=== PATIENT | female | born 1965 | race Caucasian/White ===

== ENCOUNTER 2016-11-27 08:06 | Emergency (ER) | payer SELFPAY ==
[2016-11-27 08:23] VITALS: BP 147/86
[2016-11-27] MEDS ORDERED: TYLENOL ONE (08:23)
[2016-11-27] MEDS ORDERED: TYLENOL PO ONE (08:24)
--- NOTE | 2016-11-27 08:44 | Emergency Department Report ---
- General Chief Complaint: Upper Respiratory Infection Stated Complaint: FLU SYMPTOMS Time Seen by Provider: 11/27/16 08:28 Source: patient Mode of arrival: Ambulatory Limitations: Language Barrier - History of Present Illness Initial Comments: Patient complains of headache, runny nose, nonproductive cough and fever since last night. Denies chest pain or discomfort, shortness of breath, sore throat or painful swallowing, spitting or coughing up blood. Also complains of back pain and frequent urination 2 weeks ago and again last night. Denies dysuria, urgency, vaginal discharge or discomfort. Patient has a history of back pain. Reports taking Motrin last night for fever and back pain. - Related Data Previous Rx's Medication Instructions Recorded Last Taken Type Acetaminophen [Tylenol] 1,000 mg PO Q6HR #21 tablet 11/27/16 Unknown Rx Amoxicillin/K Clav Tab [Augmentin 1 tab PO Q12HR #20 tab 11/27/16 Unknown Rx 875 mg] Fluconazole [Diflucan TAB] 150 mg PO ONCE #2 tablet 11/27/16 Unknown Rx Fluticasone [Flonase] 1 spray NS QDAY #1 bottle 11/27/16 Unknown Rx Sulfamethoxazole/Trimethoprim 1 each PO BID #14 tablet 11/27/16 Unknown Rx [Bactrim DS TAB] Allergies Allergy/AdvReac Type Severity Reaction Status Date / Time No Known Allergies Allergy Verified 11/27/16 08:47 ED Review of Systems ROS: Stated complaint: FLU SYMPTOMS Other details as noted in HPI Comment: All other systems reviewed and negative ED Past Medical Hx - Medications Home Medications: Home Medications Medication Instructions Recorded Confirmed Last Taken Type Acetaminophen [Tylenol] 1,000 mg PO Q6HR #21 tablet 11/27/16 Unknown Rx Amoxicillin/K Clav Tab [Augmentin 1 tab PO Q12HR #20 tab 11/27/16 Unknown Rx 875 mg] Fluconazole [Diflucan TAB] 150 mg PO ONCE #2 tablet 11/27/16 Unknown Rx Fluticasone [Flonase] 1 spray NS QDAY #1 bottle 11/27/16 Unknown Rx Sulfamethoxazole/Trimethoprim 1 each PO BID #14 tablet 11/27/16 Unknown Rx [Bactrim DS TAB] ED Physical Exam - General Limitations: Language Barrier General appearance: alert, in no apparent distress - Head Head exam: Present: atraumatic, normocephalic, normal inspection, other (b/l frontal sinus tenderness.) - Eye Eye exam: Present: normal appearance, PERRL, EOMI. Absent: scleral icterus, conjunctival injection, periorbital swelling, periorbital tenderness - ENT ENT exam: Present: normal orophraynx, mucous membranes moist, TM's normal bilaterally, normal external ear exam - Neck Neck exam: Present: normal inspection, full ROM. Absent: tenderness, meningismus, lymphadenopathy - Respiratory Respiratory exam: Present: normal lung sounds bilaterally. Absent: respiratory distress, wheezes, rales, rhonchi, stridor, chest wall tenderness, accessory muscle use, decreased breath sounds, prolonged expiratory - Cardiovascular Cardiovascular Exam: Present: regular rate, normal rhythm - GI/Abdominal GI/Abdominal exam: Present: soft, normal bowel sounds. Absent: distended, tenderness (no suprapubic tenderness), guarding, rebound, rigid - Extremities Exam Extremities exam: Present: normal inspection, full ROM, normal capillary refill. Absent: tenderness, pedal edema, joint swelling - Back Exam Back exam: Present: normal inspection, full ROM, vertebral tenderness (LS- spine ). Absent: tenderness, CVA tenderness (R), CVA tenderness (L) - Neurological Exam Neurological exam: Present: alert, oriented X3, normal gait, reflexes normal. Absent: motor sensory deficit - Psychiatric Psychiatric exam: Present: normal affect, normal mood - Skin Skin exam: Present: warm, dry, intact, normal color. Absent: rash, cyanosis, diaphoretic, erythema, petechiae, pallor, abrasion, ecchymosis ED Course Vital Signs 11/27/16 11/27/16 08:14 09:24 Temperature 100.2 F H 99.2 F Pulse Rate 103 H Respiratory 18 Rate Blood Pressure 147/86 O2 Sat by Pulse 100 Oximetry ED Medical Decision Making - Medical Decision Making 51 YOF with acute frontal sinusitis, and UTI. UA reveals proteinuria, Large leukocyte esterase, high white count and 1+ bacterial. She will be treated appropriately for acute sinusitis and UTI (see prescriptions). Antipyretic also provided. Patient education, follow-up/referral, return instructions provided. She verbalized understanding and is agreeable to plan. Critical care attestation.: If time is entered above; I have spent that time in minutes in the direct care of this critically ill patient, excluding procedure time. ED Disposition Clinical Impression: Sinusitis Qualifiers: Sinusitis location: frontal Chronicity: acute Recurrence: not specified as recurrent Qualified Code(s): J01.10 - Acute frontal sinusitis, unspecified UTI (urinary tract infection) Qualifiers: Urinary tract infection type: site unspecified Hematuria presence: without hematuria Qualified Code(s): N39.0 - Urinary tract infection, site not specified Disposition: DISCHARGED TO HOME OR SELFCARE Is pt being admited?: No Does the pt Need Aspirin: No Condition: Stable Instructions: Sinusitis (ED), Urinary Tract Infection in Women (ED) Prescriptions: Acetaminophen [Tylenol] 1,000 mg PO Q6HR #21 tablet Amoxicillin/K Clav Tab [Augmentin 875 mg] 1 tab PO Q12HR #20 tab Sulfamethoxazole/Trimethoprim [Bactrim DS TAB] 1 each PO BID #14 tablet Fluconazole [Diflucan TAB] 150 mg PO ONCE #2 tablet Fluticasone [Flonase] 1 spray NS QDAY #1 bottle Referrals: [facility] [Outside] - 2-3 Days PRIMARY CARE,MD [Primary Care Provider] - 2-3 Days
[2016-11-27 08:58] LABS: Bacteria,Urine 1+ /HPF (Negative); Bilirubin,Urine NEG (Negative); Blood,Urine NEG (Negative); Ketones,Urine NEG (Negative); Leukocyte Esterase,Urine LG (Negative); Mucus,Urine FEW /HPF; Nitrite,Urine NEG (Negative); Urobilinogen,Urine < 2.0 mg/dL (<2.0)
== END 2016-11-27 09:25 | disposition home or self-care (01) ==
LOC: ED 08:06
DX: N39.0 Urinary tract infection, site not specified (principal); J01.10 Acute frontal sinusitis, unspecified
CPT/HCPCS: 81001; 99282